=== PATIENT | female | born 1945 | race Caucasian/White ===

== ENCOUNTER → 2016-08-11 | Outpatient (CLI) | payer MEDICARE, OTHER ==
--- NOTE | 2016-08-11 17:20 | Diagnostic Imaging Report ---
PROCEDURE: US Thyroid. TECHNIQUE: Multiple real-time grayscale images were obtained of the thyroid in various projections. INDICATION: Thyroid nodule. FINDINGS: The right thyroid lobe is 5.5 x 2.5 x 2.1 cm. The left lobe is 4.5 x 1.2 x 1.4 cm. In the left lobe, there is a 3.8 x 2.2 x 2.5 cm solid mass. When compared to prior exams, no significant change is seen from 2016. There is however mild enlargement when compared to the 04/23/2014 exam when it measured 3.4 x 1.8 x 2.2 cm. In the left lobe, there is a 9 mm from colloid cyst. IMPRESSION: There is a 3.8 cm solid mass in the right thyroid lobe with mild enlargement compared to 04/23/2014 exam in favor of benign etiology. Correlate with pathology results from biopsy performed in January 2014. Dictated by: Dictated on workstation # [id number]
== END ==
LOC: RAD 10:47
PROVIDERS: ATTEND Otolaryngology Otolaryngology/Facial Plastic Surgery
DX: E04.1 Nontoxic single thyroid nodule (principal)
CPT/HCPCS: 76536

== ENCOUNTER → 2017-07-26 | Outpatient (CLI) | payer MEDICARE, OTHER ==
--- NOTE | 2017-07-26 17:57 | Diagnostic Imaging Report ---
INDICATION: Thyroid mass. TECHNIQUE: Grayscale sonographic images of the thyroid gland. CORRELATION STUDY: 08/11/2016. FINDINGS: RIGHT LOBE: Enlarged at 5.8 x 2.3 x 1.9 cm. There is a heterogeneous predominantly solid mass-like finding in the inferior portion of the right lobe. This currently measures 3.4 x 2.2 x 2.2 cm, previously 3.8 x 2.2 x 2.5 cm. LEFT LOBE: 4.5 x 1.4 x 1.4 cm. Hypoechoic nodule with small calcification is present centrally measuring 9 x 7 x 9 mm. Unchanged in size, previously 9 x 7 x 9 mm. Isthmus appears unremarkable. IMPRESSION: 1. Large dominant right lobe mass overall generally stable without significant interval change or enlargement. 2. Small hypoechoic nodule with minimal peripheral calcification in the left lobe stable in size. (Normal gland size: 4-5 x 2 x 2 cm) Dictated by: Dictated on workstation # [id number]
== END ==
LOC: RAD 11:49
PROVIDERS: ATTEND Otolaryngology Otolaryngology/Facial Plastic Surgery
DX: E04.1 Nontoxic single thyroid nodule (principal)
CPT/HCPCS: 76536

== ENCOUNTER → 2019-02-28 | Outpatient (CLI) | payer MEDICARE, OTHER ==
--- NOTE | 2019-02-28 12:44 | Diagnostic Imaging Report ---
PROCEDURE: US Thyroid. TECHNIQUE: Multiple real-time grayscale images were obtained of the thyroid in various projections. INDICATION: Multinodular goiter. Correlation is made with prior thyroid ultrasound from 07/26/2017. FINDINGS: Right lobe measures 5.9 x 2.1 x 2.8 cm and the left lobe measures 4.3 x 1.5 x 2.0 cm. Isthmus is 2 mm in thickness. Dominant solid nodule involving the right lobe of the thyroid is again noted, measuring 3.5 x 2.3 x 2.0 cm. This compares with 3.4 x 2.2 x 2.2 cm on prior. Left lobe contains 2 cysts. Largest upper pole measuring about 11 mm x 8 mm compared with approximately 9 mm x 7 mm. There is a 2 mm cyst in the mid left lobe. IMPRESSION: Overall stable dominant solid nodule right lobe of the thyroid when compared with examination from 07/26/2017. There are 2 left lobe cysts. Dictated by: Dictated on workstation # [id number]
== END ==
LOC: RAD 10:18
PROVIDERS: ATTEND Otolaryngology Otolaryngology/Facial Plastic Surgery
DX: E04.2 Nontoxic multinodular goiter (principal)
CPT/HCPCS: 76536